=== PATIENT | male | born 1950 | race Caucasian/White ===

== ENCOUNTER 2016-09-23 21:23 | Inpatient (IN) | payer OTHER ==
[~2016-09-23] VITALS: Ht 172.7 cm; Wt 74.8 kg
[2016-09-23] MEDS ORDERED: ACETAMINOPHEN 500 MG TAB PO ONE (21:45)
[2016-09-23 22:07] LABS: Basophils # (auto) 0 uL; Basophils % (auto) 0.3 % (0.0-2.0); Eosinophils # (auto) 0.1 uL; Eosinophils % (auto) 0.6 % (0.0-7.0); Hematocrit 40.3 % (41.0-53.0); Hemoglobin 13.2 g/dL (13.5-17.5); Lymphocytes # (auto) 1.5 uL; Mean Corpuscular Hemoglobin 29.6 pg (28.0-32.0); Mean Corpuscular Hgb Conc. 32.9 g/dL (32.0-36.0); Mean Corpuscular Volume 90.1 fL (80.0-100.0); Mean Platelet Volume 9.6 fL (7.4-10.4); Monocytes % (auto) 6.8 % (0.0-12.0); Neutrophils # (auto) 12.4 uL; Neutrophils % (auto) 82.3 % (37.0-80.0); Platelet Count (auto) 214 10^3/uL (140-450); Red Cell Distribution Width 13.4 % (11.6-16.0); White Blood Cell 15.1 10^3/uL (4.4-10.8)
[2016-09-23 22:17] LABS: Albumin 3.6 g/dL (3.4-5.0); BUN/Creatinine Ratio 14.5; Bilirubin, Total 0.6 mg/dL (0.2-1.0); Calcium 8.7 mg/dL (8.5-10.1); Potassium 4.1 mmol/L (3.5-5.1); Total Protein 7.2 g/dL (6.4-8.2)
[2016-09-23] MEDS ORDERED: cefTRIAXone 1GM/50ML D5W 50 ML IV ONE (23:15)
[2016-09-23] MEDS ORDERED: ONDANSETRON HCL 4 MG/2 ML VIAL IV ONE (23:15)
[2016-09-23] MEDS ORDERED: MORPHINE SULFATE 4 MG/ML SYRG IV ONE (23:15)
[2016-09-23] MEDS ORDERED: SODIUM CHLORIDE 0.9% 1,000 ML IV ONE (23:15)
[2016-09-24] MEDS ORDERED: IOHEXOL 350 MG/ML 100ML IJ ONE (00:49)
[2016-09-24] MEDS ORDERED: ATOR20TA PO (02:22)
[2016-09-24] MEDS ORDERED: MORPHINE SULFATE 4 MG/ML SYRG IV PRN (05:00)
[2016-09-24] MEDS ORDERED: LACTULOSE 20Gm/30ML SOLN PO PRN (05:00)
[2016-09-24] MEDS ORDERED: ASPirin 81 mg TAB PO ONE (05:00)
[2016-09-24] MEDS ORDERED: MORPHINE SULF INJ 2 MG/ML SYRINGE 1ML IV PRN (05:00)
[2016-09-24] MEDS ORDERED: ONDANSETRON HCL 4 MG/2 ML VIAL IV PRN (05:00)
[2016-09-24] MEDS ORDERED: NITROGLYCERIN 0.4 MG SL TAB SL PRN (05:00)
[2016-09-24] MEDS ORDERED: ACETAMINOPHEN 325 MG TAB PO PRN (05:30)
[2016-09-24] MEDS ORDERED: methylPREDNISolone SOD SUCC 125 MG/2 ML VL IV ONE (05:30)
[2016-09-24] MEDS: SODIUM CHLORIDE 0.9% 1,000 ML IV SCH ×2 (05:33→14:26)
[2016-09-24] MEDS ORDERED: AZITHROMYCIN 500MG/D5W 250ML 250 ML IV SCH (06:00)
[2016-09-24 06:10] VITALS: BP 136/74
[2016-09-24 06:17] VITALS: BP 136/74
[2016-09-24] MEDS: ALBUTEROL SULF 2.5 MG/0.5ML(0.5%) NEB SOLN NEB SCH ×3 (07:27→13:52)
[2016-09-24] MEDS: IPRATROPIUM BROM 0.5 MG/2.5ML INH SOL NEB SCH ×3 (07:27→13:52)
[2016-09-24 08:00] VITALS: BP 122/64
[2016-09-24] MEDS ORDERED: ENALAPRIL MALEATE 10 MG TAB PO SCH (10:00)
[2016-09-24] MEDS ORDERED: METOPROLOL TARTRATE 25 MG TAB PO SCH (10:00)
[2016-09-24] MEDS ORDERED: PANTOPRAZOLE SODIUM 40 MG/10 ML VIAL IV SCH (10:00)
[2016-09-24] MEDS ORDERED: ENOXAPARIN SOD 40 MG/0.4 ML SYRINGE SC SCH (10:00)
[2016-09-24] MEDS ORDERED: ENOXAPARIN SOD 30 MG/0.3 ML SYRINGE SC SCH (10:00)
[2016-09-24] MEDS ORDERED: ASPirin 81 mg TAB PO SCH (10:00)
[2016-09-24 13:00] VITALS: BP 132/65
[2016-09-24] MEDS ORDERED: cefTRIAXone 1GM/50ML D5W 50 ML IV SCH (21:00)
[2016-09-24] MEDS ORDERED: ATORVASTATIN 20 MG TAB PO SCH (22:00)
[2016-09-25] MEDS ORDERED: methylPREDNISolone SOD SUCC 125 MG/2 ML VL IV SCH (10:00)
== END 2016-09-24 18:00 | disposition home or self-care (01) | DRG 871 ==
LOC: ER 21:53 → TELE 21:54 → TELE-WESTW 09-24 06:07
PROVIDERS: ADMIT Family Medicine; ATTEND Internal Medicine
DX: A41.9 Sepsis, unspecified organism (principal); J18.9 Pneumonia, unspecified organism; J45.901 Unspecified asthma with (acute) exacerbation; F17.210 Nicotine dependence, cigarettes, uncomplicated; D64.9 Anemia, unspecified; Z90.49 Acquired absence of other specified parts of digestive tract
CPT/HCPCS: 36415; 70450; 71010; 71275; 80053; 83605; 84484; 85025; 85049; 85379; 87040; 87070; 87205; 87400; 93005; 94640; 94761; 96365; 96367; 96375; C9113; J0696; J2405

== ENCOUNTER 2017-03-25 16:05 | Emergency (ER) | payer OTHER ==
[~2017-03-25] VITALS: Ht 175.3 cm; Wt 77.1 kg
[~2017-03-25 16:05] MED LIST: ATOR20TA PO
[2017-03-25 16:17] VITALS: BP 155/87
[2017-03-25] MEDS: TETANUS-DIPTH-ACEL PERTUSSIS 0.5ML SYRG IM ONE (17:55)
== END 2017-03-25 18:03 | disposition home or self-care (01) ==
LOC: ER 16:09
DX: S61.211A Laceration without foreign body of left index finger without damage to nail, initial encounter (principal); J45.909 Unspecified asthma, uncomplicated; F17.210 Nicotine dependence, cigarettes, uncomplicated; Z90.89 Acquired absence of other organs; W26.9XXA Contact with unspecified sharp object(s), initial encounter; Y93.89 Activity, other specified; Y99.8 Other external cause status; Y92.89 Other specified places as the place of occurrence of the external cause
CPT/HCPCS: 12001; 90471; 90715

== ENCOUNTER 2017-04-28 11:57 | Observation (INO) | payer OTHER ==
[~2017-04-28] VITALS: Ht 175.3 cm; Wt 77.1 kg
[2017-04-28 12:35] LABS: Basophils # (auto) 0.1 uL; Basophils % (auto) 0.7 % (0.0-2.0); CONDITION Y; Eosinophils # (auto) 0.1 uL; Hematocrit 44.8 % (41.0-53.0); Hemoglobin 15.3 g/dL (13.5-17.5); Lymphocytes # (auto) 2.5 uL; Lymphocytes % (auto) 31.9 % (10.0-50.0); Mean Corpuscular Hemoglobin 30.8 pg (28.0-32.0); Mean Corpuscular Hgb Conc. 34.1 g/dL (32.0-36.0); Mean Corpuscular Volume 90.4 fL (80.0-100.0); Mean Platelet Volume 9.3 fL (7.4-10.4); Monocytes # (auto) 0.4 uL; Monocytes % (auto) 5.5 % (0.0-12.0); Neutrophils # (auto) 4.9 uL; Neutrophils % (auto) 60.9 % (37.0-80.0); Platelet Count (auto) 236 10^3/uL (140-450); Red Cell Distribution Width 13.3 % (11.6-16.0)
[2017-04-28 13:00] LABS: Albumin 4.3 g/dL (3.4-5.0); Alkaline Phosphatase 91 U/L (45-117); Anion Gap 5 (5-15); Aspartate Aminotransferase 20 U/L (15-37); Bilirubin, Total 0.6 mg/dL (0.2-1.0); Blood Urea Nitrogen 14 mg/dL (7-18); Calcium 9.4 mg/dL (8.5-10.1); Carbon Dioxide 29 mmol/L (21-32); Chloride 103 mmol/L (98-107); GFR African American 97 mL/min; GFR Non-African American 80 mL/min; Glucose 102 mg/dL (74-106); Magnesium 2.4 mg/dL (1.6-2.6); Potassium 4.9 mmol/L (3.5-5.1); Sodium 137 mmol/L (136-145); Total Protein 7.9 g/dL (6.4-8.2)
[2017-04-28 13:02] LABS: B-Type Natriuretic Peptide 5.13 pg/mL (0-100)
[2017-04-28 13:03] LABS: Temperature: 22.4 C (20.0-25.0)
[2017-04-28] MEDS ORDERED: ALBUTEROL SULF 2.5 MG/0.5ML(0.5%) NEB SOLN HHN ONE (14:30)
[2017-04-28] MEDS ORDERED: IPRATROPIUM BROM 0.5 MG/2.5ML INH SOL HHN ONE (14:30)
[2017-04-28] MEDS ORDERED: methylPREDNISolone SOD SUCC 125 MG/2 ML VL IV ONE (14:30)
[2017-04-28 15:44] VITALS: BP 115/71
== END 2017-04-28 17:59 | disposition home or self-care (01) | DRG 203 ==
LOC: ER 11:57 → OVERFLOW 14:32 → ER 17:59
PROVIDERS: ADMIT Emergency Medicine; ATTEND Emergency Medicine
DX: J45.901 Unspecified asthma with (acute) exacerbation (principal); E78.5 Hyperlipidemia, unspecified; R07.89 Other chest pain; F17.210 Nicotine dependence, cigarettes, uncomplicated
CPT/HCPCS: 36415; 71010; 74176; 80053; 83735; 83880; 84484; 85025; 85379; 93005; 94644; 96374; 99285; G0378; J2930

== ENCOUNTER 2019-04-23 22:09 | Inpatient (IN) | payer OTHER ==
[~2019-04-23] VITALS: Ht 175.3 cm; Wt 78.5 kg
[2019-04-23 22:37] LABS: Urine WBC None Seen /hpf (0 - 3)
[2019-04-23 22:46] LABS: Basophils # (auto) 0.1 uL; Basophils % (auto) 0.6 % (0.0-2.0); Eosinophils # (auto) 0.1 uL; Eosinophils % (auto) 1.4 % (0.0-7.0); Hematocrit 41.9 % (41.0-53.0); Hemoglobin 14.5 g/dL (13.5-17.5); Lymphocytes # (auto) 3.8 uL; Lymphocytes % (auto) 36.1 % (10.0-50.0); Mean Corpuscular Hemoglobin 30.5 pg (28.0-32.0); Mean Corpuscular Hgb Conc. 34.6 g/dL (32.0-36.0); Mean Corpuscular Volume 88.3 fL (80.0-100.0); Monocytes # (auto) 0.6 uL; Monocytes % (auto) 5.4 % (0.0-12.0); Neutrophils # (auto) 5.9 uL; Neutrophils % (auto) 56.5 % (37.0-80.0); Platelet Count (auto) 197 10^3/uL (140-450); Red Blood Cells 4.75 10^6/uL (4.5-5.90); White Blood Cell 10.4 10^3/uL (4.4-10.8)
[2019-04-23 23:04] LABS: Anion Gap 9 (5-15); Blood Urea Nitrogen 12 mg/dL (7-18); Calcium 9.2 mg/dL (8.5-10.1); Carbon Dioxide 26 mmol/L (21-32); Chloride 105 mmol/L (98-107); Glucose 103 mg/dL (74-106); Magnesium 2.2 mg/dL (1.6-2.6); Potassium 3.7 mmol/L (3.5-5.1); Sodium 140 mmol/L (136-145)
[2019-04-23 23:05] LABS: Amphetamine Screen, Urine NEGATIVE (NEGATIVE); Barbiturate Scree,Urine NEGATIVE (NEGATIVE); Benzodiazephine Screen, Urine NEGATIVE (NEGATIVE); Cannabinoid Screen, Urine NEGATIVE (NEGATIVE); Cocaine Screen, Urine NEGATIVE (NEGATIVE); Opiate Scree,Urine NEGATIVE (NEGATIVE); Phencyclidine Screen, Urine NEGATIVE (NEGATIVE)
[2019-04-23 23:06] LABS: Alanine Aminotransferase 33 U/L (16-61); Aspartate Aminotransferase 18 U/L (15-37); BUN/Creatinine Ratio 10.2; GFR African American 79 mL/min; GFR Non-African American 66 mL/min
[2019-04-23 23:10] LABS: Urine Bacteria NONE SEEN /hpf (None Seen); Urine Blood Negative /uL (Negative); Urine Specific Gravity 1.005 (1.001-1.035)
[2019-04-23 23:11] LABS: Alkaline Phosphatase 101 U/L (45-117); Bilirubin, Total 0.5 mg/dL (0.2-1.0); Total Protein 7.3 g/dL (6.4-8.2)
[2019-04-24] MEDS ORDERED: TEMAZEPAM 15 MG CAP PO PRN (05:30)
[2019-04-24] MEDS ORDERED: ONDANSETRON HCL 4 MG/2 ML VIAL IV PRN (05:30)
[2019-04-24] MEDS ORDERED: ACETAMINOPHEN 325 MG TAB PO PRN (05:30)
[2019-04-24] MEDS ORDERED: MORPHINE SULF INJ 2 MG/ML SYRINGE 1ML IV PRN (06:30)
[2019-04-24] MEDS ORDERED: NITROGLYCERIN 0.4 MG SL TAB SL PRN (06:30)
--- NOTE | 2019-04-24 08:47 | NUR ---
REC'D FROM ER TO [facility] ON TELEMETRY #24. REPORT REC'D BY PHONE FROM ANA PEDROZA PT IS CURRENTLY EATING. REPORTS SLIGHT PAIN IN CHEST "IT HAS NEVER GONE AWAY". STATES WORSE WITH DEEP BREATH, COUGH AND TO TOUCH. STATES THE PAIN HE HAD BETWEEN HIS SHOULDER BLADES CONCERNED HIM. REASSURED HE WAS CORRECT IN COMING TO HOSPITAL. GIVEN BRIEF POC, WILL DO FULL ASSESS AFTER HE EATS.
[2019-04-24 09:00] VITALS: BP 140/85
--- NOTE | 2019-04-24 09:08 | NUR ---
PT REQUESTED TO AMB OUTSIDE TO SMOKE. AMA FORM SIGNED. LUNGS AUSCULTATED PRIOR-TIGHT EXP WHEEZES THROUGHOUT AND DIMINISHED BREATH SOUNDS. OBSERVED AMB DOWN SIMS WITHOUT DIFFICULTY
[2019-04-24] MEDS ORDERED: FAMOTIDINE 20 MG TAB PO SCH (10:00)
[2019-04-24] MEDS ORDERED: ASPirin 81 mg TAB PO SCH (10:00)
[2019-04-24] MEDS ORDERED: IPRAAER6 IN (10:29)
[2019-04-24] MEDS ORDERED: ALBU0.084 IN (10:29)
--- NOTE | 2019-04-24 10:41 | NUR ---
DR. MAYEN IN FOR CARDIAC CONSULT
[2019-04-24 13:00] VITALS: BP 155/86
--- NOTE | 2019-04-24 14:20 | NUR ---
PT HAD CHEST PAIN, TIGHTNESS WITH PAIN RADIATING TO BACK. EKG DONE AND SHOWN TO DT. FREED. WANTS TIARRA CALLED TO CLEAR FOR DISCHARGE.
[2019-04-24] MEDS ORDERED: ALBUTEROL SULF 2.5 MG/0.5ML(0.5%) NEB SOLN NEB ONE (14:30)
--- NOTE | 2019-04-24 15:00 | NUR ---
MED NEB TREATMENT DONE WITH IMPROVED AIR MOVEMENT. IS ABLE TO TAKE DEEP BREATH WITHOUT PAIN. CONT WITH FAINT EXPIRATORY WHEEZES BILAT
--- NOTE | 2019-04-24 15:40 | NUR ---
PER DR. FREED REQUEST, DR MAYEN NOTIFIED OF EARLIER CHEST PAIN, EKG, RESOLUTION CLEARED BY CARDIOLOGY FOR DISCHARGE
[2019-04-24] MEDS ORDERED: ASPI-266 PO ×2 (16:35)
[2019-04-24] MEDS ORDERED: METO25TA5 PO ×2 (16:35)
[2019-04-24] MEDS ORDERED: METH4PAK PO ×2 (16:35)
[2019-04-24] MEDS ORDERED: ALBUTEROL SULF 2.5 MG/0.5ML(0.5%) NEB SOLN NEB SCH (18:00)
[2019-04-24] MEDS ORDERED: IPRATROPIUM BROM 0.5 MG/2.5ML INH SOL NEB SCH (18:00)
--- NOTE | 2019-04-24 18:23 | NUR ---
IV DC, CATH INTACT, SITE WITHOUT REDNESS. SITE COVERED WITH 2X2 AND COBAN
--- NOTE | 2019-04-24 18:55 | NUR ---
DISCHARGE INSTRUCTIONS GIVEN AND UNDERSTOOD. ALL QUESTIONS ANSWERED. GIVEN FURTHER TECHNIQUES TO STOP SMOKING. REFUSED WC. AMB OUT OF DEPT. PT DROVE HIMSELF TO HOSPITAL AND WILL DRIVE HOME. NO RESP DISTRESS OR CHEST PAIN REMINDED TO RETURN TO ER IF WORSE IN ANY WAY
[2019-04-24] MEDS ORDERED: ATORVASTATIN 20 MG TAB PO SCH (22:00)
== END 2019-04-24 18:55 | disposition home health service (06) | DRG 313 ==
LOC: ER 22:10 → TELE 22:11 → TELE-EAST 04-24 08:44
PROVIDERS: ADMIT Nurse Practitioner; ATTEND Internal Medicine
DX: R07.89 Other chest pain (principal); G92 Toxic encephalopathy; J44.1 Chronic obstructive pulmonary disease with (acute) exacerbation; F10.129 Alcohol abuse with intoxication, unspecified; F19.10 Other psychoactive substance abuse, uncomplicated; F17.210 Nicotine dependence, cigarettes, uncomplicated; I70.0 Atherosclerosis of aorta; E78.5 Hyperlipidemia, unspecified; Z90.49 Acquired absence of other specified parts of digestive tract; Z79.899 Other long term (current) drug therapy
CPT/HCPCS: 36415; 71045; 80053; 80307; 81001; 83735; 83880; 84484; 85025; 85379; 93005; 93306; 94640; G0378